=== PATIENT | male | born 1955 | race Caucasian/White ===

== ENCOUNTER 2017-03-27 07:06 | Emergency (ER) | payer OTHER ==
--- NOTE | ~2017-03-27 | ER ---
PATIENT'S NAME: EVANGELIST GONG [facility] AGE: 61 Y [address] ROOM: [place] [address] LOCATION: [facility] ADMIT DATE: 03/27/2017 ER/Outpatient Report DISCHARGE DATE: 03/27/2017 FAMILY PHYSICIAN: Pradip Nassar MD ATTENDING PHYSICIAN: Gibran Amaral CHIEF COMPLAINT: Varied including shortness of breath, lightheadedness, abdominal pain, generalized weakness and it is not persistent. HISTORY OF PRESENT ILLNESS: The patient states that for the last 12 to 24 hours he just has not felt well. Intermittently over that time, he has had symptoms of lightheadedness, shortness of breath, stomach discomfort, dizziness, weakness, anxiousness, and concerns for low blood sugar. He does state that he did vomit one time and had some liquid stool yesterday, but has not had any thing like that since. He denies anything like chest pain or pressure or palpitations. No fevers or chills, otherwise. No other symptoms noted. No interventions have been tried. PAST MEDICAL HISTORY: Documented on the record and reviewed by me. SOCIAL HISTORY: Documented on the record and reviewed by me. MEDICATIONS: Documented on the record and reviewed by me. ALLERGIES: DOCUMENTED ON THE RECORD AND REVIEWED BY ME. REVIEW OF SYSTEMS: All systems reviewed and negative except as noted in the HPI. PHYSICAL EXAMINATION: VITAL SIGNS: Blood pressure 138/87, pulse 105, respiratory rate 28, temp 98, SpO2 is 97% on room air. Pain is rated at 0/10. GENERAL: Age-appropriate male, disheveled appearance, in no obvious pain or distress. NEUROLOGIC: The patient is awake and alert, follows commands in all extremities. GCS 15. No focal deficits. No asymmetry. HEENT: Normocephalic, atraumatic. Eyes are PERRL. Oropharynx is grossly clear. NECK: Supple. Trachea is midline. PATIENT'S NAME: EVANGELIST GONG [facility] AGE: 61 Y [address] ROOM: [place] [address] LOCATION: [facility] ADMIT DATE: 03/27/2017 ER/Outpatient Report DISCHARGE DATE: 03/27/2017 FAMILY PHYSICIAN: Pradip Nassar MD ATTENDING PHYSICIAN: Gibran Amaral CHEST/HEART: Regular rate and rhythm with no murmurs. LUNGS: Clear to auscultation bilaterally with no rhonchi, wheezes, or rales. ABDOMEN: Soft, nontender, and nondistended. No rebound or guarding. BACK: Normal to inspection and palpation. EXTREMITIES: Warm well perfused. No abnormalities. SKIN: Cool but dry and intact throughout. LABORATORY DATA AND X-RAYS: Head CT is unremarkable. Chest CT, PE protocol is negative. Chest x-ray unremarkable. Labs procalcitonin below threshold. CMS without electrolyte abnormality, glucose elevated at 165, Accu-Chek 145, creatinine 1.2. GFR greater than 60. Troponin CK-MB are not elevated. D-dimer 0.96. WBC white count 15.9. No other abnormalities. INR is less than 1. Blood gas; pH 7.56, pCO2 is 24, PO2 is 107 on room air. Lactate is 1.6. IMPRESSION: Generalized malaise with viral syndrome. EMERGENCY DEPARTMENT COURSE: The patient was seen and evaluated as above. There are no significant abnormalities on his labs other than some mild leukocytosis. No source of that was found. With his shortness of breath and elevated heart rate, he is low risk by Wells but not PERC negative. Dimer was obtained, it was elevated, CT scan determines no intrathoracic abnormalities. The patient with no other acute findings at this time. He felt markedly improved. After evaluation in the emergency department. He was given some Zofran with improvement in his symptoms otherwise. No other acute issues at this time. The patient was feeling better, and he was discharged to home with a work note. All questions were answered. MD SORIN LOUISE/katarina /[id number] d: 03/27/[id number] t: 04/06/171932, OUTPATIENT REPORT
[2017-03-27 07:32] LABS: BASOPHIL # 0.1 K/uL (0.0-0.2); BASOPHIL % 0.3 %; HEMATOCRIT 39.4 % (37.0-53.0); HEMOGLOBIN 13.5 g/dL (11.0-16.0); IMMATURE GRANULOCYTE # 0.1 K/uL (0.0-0.3); IMMATURE GRANULOCYTE % 0.4 %; LYMPHOCYTE # 1.4 K/uL (0.8-4.0); LYMPHOCYTE % 9.1 %; MCH 30.3 pg (27.0-34.0); MCHC 34.3 gm/dL (32.0-36.5); MCV 88.5 fl (83.0-98.0); MONOCYTE # 1.4 K/uL (0.0-1.0); MPV 8.9 fl (9.4-12.4); NEUTROPHIL # (ANC) 12.9 K/uL (1.4-9.0); NEUTROPHIL % 81.2 %; NRBC % 0 /100WBC (0-0.00); PLATELET COUNT 275 K/uL (150-450); RBC 4.45 M/uL (3.50-5.50); RDW-CV 13.5 % (11.9-14.6); WBC 15.9 K/uL (4.0-11.0)
[2017-03-27 07:39] LABS: BICARBONATE 21.5 mmol/L (18.0-23.0); LACTATE 1.6 mEq/L (0.50-1.60); PCO2 24 mmHg (35-45); PO2 107 mmHg (80-90)
[2017-03-27 07:40] LABS: INR - (THERAPEUTIC) 0.99 (0.92-1.07); PROTIME 10.4 SECONDS (9.8-11.4); PTT 25 SECONDS (25-32)
[2017-03-27 07:55] LABS: ALBUMIN 3.6 gm/dL (3.5-5.0); ALK PHOS 56 IU/L (33-138); ALT 23 IU/L (12-78); ANION GAP 19.8 (10.0-19.0); AST 17 IU/L (10-40); BLOOD UREA NITROGEN 29 mg/dL (6-24); CALCIUM 8.9 mg/dL (8.5-10.5); CHLORIDE 101 mMol/L (96-110); CO2 22 mMol/L (22-32); CPK 196 IU/L (35-332); CREATININE 1.2 mg/dL (0.6-1.3); ESTIMATED GFR (MDRD EQUATION) > 60; POTASSIUM 3.8 mMol/L (3.7-5.1); SODIUM 139 mMol/L (135-145); TOTAL BILIRUBIN 0.7 mg/dL (0.0-1.5); TOTAL PROTEIN 6.7 g/dL (6.0-8.4)
[2017-05-13] MEDS ORDERED: PROTONIX40 MG PO (09:31)
== END 2017-03-27 09:46 | disposition disaster alternative care site (69) ==
LOC: GMED 07:06
PROVIDERS: Emergency Medicine
DX: B34.9 Viral infection, unspecified (principal); R53.81 Other malaise; E78.00 Pure hypercholesterolemia, unspecified; E11.9 Type 2 diabetes mellitus without complications; Z79.899 Other long term (current) drug therapy; Z87.891 Personal history of nicotine dependence
CPT/HCPCS: J2405; Q9967

== ENCOUNTER 2017-03-30 13:30 | Inpatient (IN) | payer OTHER ==
[~2017-03-30] VITALS: Ht 188 cm; Wt 98.3 kg
--- NOTE | ~2017-03-30 | CON ---
PATIENT'S NAME: [facility] AGE: 61 Y [address] ROOM: [place] [address] LOCATION: [facility] ADMIT DATE: 03/30/2017 Consultation DISCHARGE DATE: FAMILY PHYSICIAN: Dominic Duvall MD ATTENDING PHYSICIAN: Dominic Duvall REFERRING PHYSICIAN: MATEO REED MD HISTORY OF PRESENT ILLNESS: This is a 61-year-old male, who was admitted through the emergency room, was sent by Dr. Duvall, and Dr. Duvall called me to let me know about his symptoms and admission. Mr. Gong has been complaining of recent weakness the last 2 days and not feeling well and upper abdominal pain and lower abdominal pain. He has a history of recurrent abdominal pain. He has a history of alcohol abuse, nicotine abuse, obesity, had had hypertension, diabetes mellitus, and history of palpitation. On CT scan of the abdomen, there was seen to be out-bulging from the duodenal bulb with slight fat stranding around the duodenal bulb area suspicious for duodenal ulcer. However, it could be duodenal diverticulum. Because of the patient's recent signs and symptoms of abdominal pain and discomfort, he was hospitalized. ALLERGIES: NONE. HOME MEDICATIONS: As per MAR. PAST MEDICAL HISTORY: Hyperlipidemia, diabetes mellitus, alcohol abuse, nicotine abuse. SURGERIES: Has had previous skin grafts. SOCIAL HISTORY: Smoker of half to one pack a day and remote history of alcohol abuse. REVIEW OF SYSTEMS: Ten-point review of system was negative other than mentioned above. MEDICATIONS: Include: 1. Pioglitazone. 2. Statin. 3. Glimepiride. PATIENT'S NAME: CHARO GONGTHE [facility] AGE: 61 Y [address] ROOM: [address] [address] LOCATION: [facility] ADMIT DATE: 03/30/2017 Consultation DISCHARGE DATE: FAMILY PHYSICIAN: Dominic Duvall MD ATTENDING PHYSICIAN: Dominic Duvall PHYSICAL EXAMINATION: GENERAL: Reveals a well-developed male, who is not in acute discomfort. VITAL SIGNS: Show blood pressure is 162/60. Weight is 98.3 kg, pulse is 100 per minute, respiration is 18 per minute. HEENT: Head: Normocephalic, atraumatic. Eyes, ENT normal. NECK: Supple. No lymphadenopathy. CHEST: Clear to palpation, percussion, and auscultation except some wheezes bilaterally. CARDIAC: Reveals decreased muffled heart tones. S1 and S2 are normal. No S3 or murmurs. ABDOMEN: Soft. It is tender in the epigastrium and lower half of abdomen. There is no rebound tenderness. Bowel sounds are active. GENITOURINARY: Bladder is not full. Tender lower abdomen. MUSCULOSKELETAL: He moves all extremities equally without any restrictive joint disease. NEUROLOGIC: Cranial nerves intact. Motor and sensory system intact. There is no asterixis. LABORATORY DATA: Shows pH is 7.56, pCO2 is 24, PO2 is 107, glucose is 165, anion gap is 19.8, BUN is 29, creatinine is 1.2. His WBC count is 15,900, hemoglobin is 13.5, platelets 275,000. CT scan of abdomen showed suspicion of duodenal bulb ulcer or possible duodenal diverticulitis. CT scan for PE protocol was negative. There was gastric distention. ASSESSMENT: 1. Mr. Gong has abdominal pain with CT findings of possible duodenal ulcer. He needs to be further evaluated by endoscopy and biopsies for possible duodenal ulcers may explain his symptoms. 2. History of uncontrolled diabetes mellitus and hyperglycemia, which may mitigate abdominal pain or possible gastroparesis. We will go ahead and schedule him for upper GI endoscopy and further evaluation. We appreciate sharing care of this patient. MD PLACIDO BENITES/katarian PATIENT'S NAME: EVANGELIST GONG [facility] AGE: 61 Y [address] ROOM: [place] [address] LOCATION: [facility] ADMIT DATE: 03/30/2017 Consultation DISCHARGE DATE: FAMILY PHYSICIAN: Dominic Duvall MD ATTENDING PHYSICIAN: Dominic Duvall /[id number] CC: Dominic Duvall MD d: 03/30/17 2344 t: 03/31/17 1034, CONSULTATION REPORT
[2017-03-30] MEDS ORDERED: LIPITOR80 MG PO (14:16)
[2017-03-30] MEDS ORDERED: AMARYL4 MG PO (14:16)
[2017-03-30] MEDS ORDERED: JARDIANCE25 MG PO (14:16)
[2017-03-30] MEDS ORDERED: PRILOSEC20 MG PO (14:17)
[2017-03-30] MEDS ORDERED: ACTOS45 MG PO (14:17)
--- NOTE | 2017-03-30 18:29 | NUR ---
Significant Event:Patient has no pain. Dr. Santillan in to see patient, will do an EGD in morning. Has IVF infusing at 125 ml/hr. Will be NPO after MN. Follow up:Monitor for bloody or black tarry stools
--- NOTE | 2017-03-30 18:35 | NUR ---
D:Patient admitted to room 6309, from admissions. Is alert and oreintated. No c/o pain. Came to room at 1400. Has had only one black tarry stool on . Denies any bright red blood. Brother is with him. Reports that he has an ulcer that was found on CT of the abd today. P:Monitor for bleeding/ GI consult
--- NOTE | 2017-03-31 04:10 | NUR ---
Pt a/o. vss on RA, afebrile. sba. NS at 150. norco x1 at hs for "stomach pain" no bm's. voids per urinal. consents signed Plan: NPO for egd.
--- NOTE | 2017-03-31 15:08 | NUR ---
Significant Event: A/O X3. UP WITH MINIMAL ASSIST. EGD THIS AM, FOUND LARGE DEUDENAL ULCER. IV SL'D TO RIGHT FA. DENIES PAIN. EATING NOW, TOLERATING SO FAR WITHOUT PAIN. WILL BE GIVING FLEETS ENEMA X1 FOR CONSTIPATION PER DR. GIBSON. Follow up:
--- NOTE | 2017-04-01 05:00 | NUR ---
Significant Event: A/O, VSS, RA, afebrile, slight pain after eating supper, SBA to bathroom Follow up: home today?
--- NOTE | 2017-04-01 11:00 | NUR ---
Introduced self and role of care management to patient. Patient lives alone in [place]. He says he gets to go home today and is anxious to leave. Checked with his nurse and Savannah RENDON with GI to see him before he can be discharged. Updated patient. He hopes she comes soon as he wants to go home. He denies discharge needs at this time. Plan is home today.
[2017-04-01] MEDS ORDERED: PROTONIX40 MG PO (12:11)
[2017-04-01] MEDS ORDERED: TOBREX5 ML OPHTH (12:15)
[2017-04-01] MEDS ORDERED: FEOSOL325 MG PO (12:16)
[2017-04-01] MEDS ORDERED: BIAXIN500 MG PO (12:20)
[2017-04-01] MEDS ORDERED: AMOXICILLIN500 MG PO (12:24)
--- NOTE | 2017-04-01 13:23 | NUR ---
Discharge Summary: Patient A/O x 3 and vital signs stable: HR 77, BP 124/76, RR 16, O2 saturation 96% on room air, temperature 98.4 F, and denies pain or shortness of breath. Condition stable. Discharge instructions included: new medications/medication changes, signs/symptoms to be alert for, and following up with Dr. Nassar on 04/08/17 and GI for EGD on 05/13/17. Instructions given to patient and [id number], and they state they have no further questions at this time. Monitor and peripheral IV discontinued. Patient left PCU at 1325 per wheelchair to [facility] entrance and then home to self care with [id number]. No other needs at time of discharge. Parish RN 04/01/17
[2017-05-13] MEDS ORDERED: PROTONIX40 MG PO (09:31)
== END 2017-04-01 13:25 | disposition disaster alternative care site (69) | DRG 384 ==
LOC: GPCU 13:30
PROVIDERS: ADMIT Family Medicine
PROC: 0DJ08ZZ Inspection of Upper Intestinal Tract, Via Natural or Artificial Opening Endoscopic (ICD-10-PCS; principal; 2017-03-30)
DX: K26.9 Duodenal ulcer, unspecified as acute or chronic, without hemorrhage or perforation (principal); E66.01 Morbid (severe) obesity due to excess calories; E78.2 Mixed hyperlipidemia; E11.9 Type 2 diabetes mellitus without complications; B96.81 Helicobacter pylori [H. pylori] as the cause of diseases classified elsewhere; F17.210 Nicotine dependence, cigarettes, uncomplicated; G47.33 Obstructive sleep apnea (adult) (pediatric); Z85.030 Personal history of malignant carcinoid tumor of large intestine; Z68.27 Body mass index [BMI] 27.0-27.9, adult; K21.0 Gastro-esophageal reflux disease with esophagitis
CPT/HCPCS: J7030

== ENCOUNTER → 2017-03-30 | Outpatient (CLI) | payer OTHER ==
[~2017-03-30] MED LIST: ACTOS45 MG PO; AMARYL4 MG PO; AMOXICILLIN500 MG PO; BIAXIN500 MG PO; FEOSOL325 MG PO; JARDIANCE25 MG PO; LIPITOR80 MG PO; PRILOSEC20 MG PO; PROTONIX40 MG PO; TOBREX5 ML OPHTH
== END | disposition disaster alternative care site (69) ==
LOC: GRAD 11:37
DX: R10.9 Unspecified abdominal pain (principal)

== ENCOUNTER → 2017-05-13 | Day surgery (SDC) | payer OTHER ==
[~2017-05-13] VITALS: Ht 188 cm; Wt 103.9 kg
== END | disposition disaster alternative care site (69) ==
LOC: GPOC 05-06 10:00 → GEND 06:53 → GPOC 10:00
PROC: 0DB68ZX Excision of Stomach, Via Natural or Artificial Opening Endoscopic, Diagnostic (ICD-10-PCS; principal; 2017-05-13)
DX: K29.50 Unspecified chronic gastritis without bleeding (principal); K26.9 Duodenal ulcer, unspecified as acute or chronic, without hemorrhage or perforation; E11.9 Type 2 diabetes mellitus without complications; K21.9 Gastro-esophageal reflux disease without esophagitis; E78.00 Pure hypercholesterolemia, unspecified; G47.30 Sleep apnea, unspecified; Z98.890 Other specified postprocedural states; Z79.899 Other long term (current) drug therapy
CPT/HCPCS: J2001; J7030